=== PATIENT | male | born 1955 | race Caucasian/White ===

== ENCOUNTER 2021-12-22 13:10 | Inpatient (IN) | payer OTHER ==
[~2021-12-22] VITALS: Ht 185.4 cm; Wt 84.7 kg
[2021-12-22] MEDS ORDERED: NALOXONE 0.4 MG/ML VIAL. IV ONE (13:30)
[2021-12-22] MEDS ORDERED: IV NORMAL SALINE 1,000ML 1,000 ML IV ONE ×2 (13:30→14:30)
--- NOTE | 2021-12-22 13:32 | PHYS DOC ---
General Adult EDM: Chief Complaint: ALTERED MENTAL STATUS HPI: HPI: Patient is a 66-year-old male who presents via EMS from the [place] for altered mental status. Patient colostomy takedown on November 24 and from November 24 to November 29 he had 2 CVAs. He was sent to a rehab facility and on December. He did have a fall. Patient does have stitches in his left forehead that need to be removed today. From patient's CVA nursing staff report that he has a left-sided deficit. They also report that he is on 4 L via nasal cannula at all times. They report that around 12:00 they checked on the patient and he was unresponsive and had shallow breathing. They were unsure if this was due to his 50 mg of morphine, 10 mg of oxycodone and 0.5 mg of Ativan that he received but they did not Narcan him because they were afraid to per nursing staff. Patient has a history of CVA, PTSD and anxiety. Showed positive for COVID-19 on November 25. (RICKY MILNER APRN) Review of Systems: Review of Systems: Patient has no complaints. Review of systems limited due to patient's altered mental status (RICKY MILNER APRN) Current Medications: Current Meds: Current Medications Medications (Trade) Dose Ordered Sig/Chika Start Time Stop Time Status Last Admin Dose Admin Naloxone HCl (Narcan) 0.4 mg 1X ONCE 12/22/21 13:30 12/22/21 13:31 UNV (RICKY MILNER APRN) Physical Exam: PE: Constitutional: cachexia appearance. HENT: Normocephalic, sutures noted to left forehead bilateral external ears normal, oropharynx moist, no oral exudates, nose normal. [] Eyes: PERRL, 3 mm bilaterally, EOMI, conjunctiva normal, no discharge. [] Neck: Normal range of motion, no tenderness, supple, no stridor. [] Cardiovascular:Heart rate regular rhythm, no murmur [] Lungs & Thorax: Bilateral breath sounds clear to auscultation [] Abdomen: Bowel sounds normal, soft, no tenderness, surgical scars noted to midline abdomen and right side of abdomen no masses, no pulsatile masses. [] : Springer in place Skin: Warm, dry, no erythema, no rash. [] Back: No tenderness Extremities: No tenderness, no cyanosis, no clubbing, ROM intact, no edema. [] Neurologic: Alert and oriented X person and time, lethargic, will open eyes to verbal but does not follow all commands, garbled speech, left-sided weakness from previous CVA Psychologic: Affect normal (RICKY MILNER APRN) Current Patient Data: Labs: Laboratory Tests Test 12/22/21 13:25 White Blood Count 12.4 x10^3/uL Red Blood Count 3.64 x10^6/uL Hemoglobin 9.8 g/dL Hematocrit 30.8 % Mean Corpuscular Volume 85 fL Mean Corpuscular Hemoglobin 27 pg Mean Corpuscular Hemoglobin Concent 32 g/dL Red Cell Distribution Width 16.1 % Platelet Count 290 x10^3/uL Neutrophils (%) (Auto) 80 % Lymphocytes (%) (Auto) 10 % Monocytes (%) (Auto) 8 % Eosinophils (%) (Auto) 2 % Basophils (%) (Auto) 0 % Neutrophils # (Auto) 9.9 x10^3uL Lymphocytes # (Auto) 1.2 x10^3/uL Monocytes # (Auto) 1.0 x10^3/uL Eosinophils # (Auto) 0.2 x10^3/uL Basophils # (Auto) 0.0 x10^3/uL Sodium Level 133 mmol/L Potassium Level 5.7 mmol/L Chloride Level 97 mmol/L Carbon Dioxide Level 26 mmol/L Anion Gap 10 Blood Urea Nitrogen 48 mg/dL Creatinine 2.8 mg/dL Estimated GFR (Cockcroft-Gault) 22.9 BUN/Creatinine Ratio 17 Glucose Level 96 mg/dL Lactic Acid Level 0.6 mmol/L Calcium Level 9.0 mg/dL Magnesium Level 2.1 mg/dL Total Bilirubin 0.3 mg/dL Aspartate Amino Transf (AST/SGOT) 24 U/L Alanine Aminotransferase (ALT/SGPT) 40 U/L Alkaline Phosphatase 111 U/L Ammonia 14 mcmol/L Troponin I High Sensitivity 14 ng/L Total Protein 7.3 g/dL Albumin 2.9 g/dL Albumin/Globulin Ratio 0.7 Current Medications Medications (Trade) Dose Ordered Sig/Chika Route PRN Reason Start Time Stop Time Status Last Admin Dose Admin Naloxone HCl (Narcan) 0.4 mg 1X ONCE IV 12/22/21 13:30 12/22/21 14:08 DC 12/22/21 14:04 Sodium Chloride 1,000 ml @ 1,000 mls/hr 1X ONCE IV 12/22/21 13:30 12/22/21 14:29 DC 12/22/21 13:58 (RICKY MILNER APRN) EKG: EKG: EKG performed by ER staff at 1327 shows sinus rhythm with a rate of 64, QTc is 423, no STEMI read by Dr. Feliz at 1329. [] (RICKY MILNER APRN) Radiology/Procedures: Radiology/Procedures: []EXAMINATION: CT HEAD AND C-SPINE WO. TECHNIQUE: Noncontrast axial images of the brain and cervical spine with coronal and sagittal reconstructions were obtained. One or more of the following radiation dose reduction techniques was used: automated exposure control, adjustment of mA and/or KV according to patient size, and/or utilization of iterative reconstruction technique. HISTORY: 66 years Male Reason: ams, possible fall,pain. Weakness. FINDINGS: CT HEAD: There is an area of edema involving the posterior lesion in the right parietal lobe with some extension into the right temporal lobe and the posterior aspect of the right the internal capsule. This is associated with the peripheral the subcortical areas of the parenchymal hemorrhage with possible component of the subarachnoid blood. This is likely a sequela of a late acute or subacute the posterior right MCA infarct with hemorrhagic transformation. A traumatic bleed component is possible although no blood is seen outside the area of infarction. Mild localized edema in the posterior right parietal lobe is seen. There is no midline shift. The lateral ventricles are from normal in size. No extra-axial the fluid collection. The visualized portions of the orbits and paranasal sinuses appear unremarkable. CT cervical spine: There is a minimal posterior translation of C5 over C6 seen, otherwise the alignment of the cervical spine is satisfactory. This alignment abnormalities associated with the degenerative posterior osteophytes at this level and is likely degenerative in etiology. There is a also small posterior osteophytes at the uncovertebral joints at C2/C3 and C3/4. The vertebral body heights are preserved. There is a mild disc height loss seen posteriorly at the C5/6 level. There is a bilateral severe foraminal stenosis at C5/6. Prominent sclerotic degenerative changes at the mid cervical spine facet joints more on the left is noted. The coronal projections demonstrate normal alignment at the lateral masses of C1 and C2 and the atlantooccipital joints. No fracture seen. IMPRESSION: CT HEAD: There is a late acute to subacute the infarction predominantly involving the right parietal lobe in the posterior 50 percent of the right MCA territory. There is superimposed areas of cortical hemorrhage with questionable sub arachnoid component. This is favored to be related to hemorrhagic transformation of an infarct rather than posttraumatic bleed. Correlation with MRI would be helpful. CT cervical spine: Degenerative changes most prominent at C5/6 level. No fracture seen. Critical result: Findings discussed by phone with RICKY MILNER APRN at 12/22/2021 2:00 PM. RESULT CODE: (C) Electronically signed by: Jairo Delgado MD (12/22/2021 2:11 PM) [id number] DICTATED AND SIGNED BY: JAIRO DELGADO MD DATE: 12/22/21 1352 CC: RICKY MILNER APRN; PCP,NO ~ REASON: ams PROCEDURE: PORTABLE CHEST 1V EXAMINATION: XR CHEST 1V CLINICAL HISTORY: Altered mental status. EXAM DATE/TIME: 12/22/2021 1:42 PM COMPARISON: None FINDINGS: Lines, Tubes, and Devices: None. Cardiomediastinal Silhouette: Normal heart size. Lungs and Pleura: Findings suggestive of volume loss on the right with elevation of the right hemidiaphragm and confluent opacity in the medial right mid to lower lung zone which may be related to atelectasis. Patchy opacities in the right upper and lower lung zones with possible spiculation surrounding a central lucency in the lower lung zone, cannot exclude a cavitary lesion. Interstitial prominence in the left lung with mild left basilar opacities likely related to subsegmental atelectasis and/or scarring. No definite pleural effusion. Bones and Soft Tissues: Degenerative changes in the thoracic spine. IMPRESSION: Findings suggestive of volume loss in the right hemithorax with nonspecific opacities in the upper and lower lung zones, cannot exclude cavitary nodule with surrounding spiculation in the right lower lung zone. Correlate with clinical history and consider follow-up CT chest for further evaluation as indicated. Electronically signed by: Carmelo Hemphill DO (12/22/2021 2:29 PM) [facility] DICTATED AND SIGNED BY: CARMELO HEMPHILL DO DATE: 12/22/21 1424 CC: RICKY MILNER APRN; PCP,NO ~ (RICKY MILNER APRN) Heart Score: C/O Chest Pain: No Risk Factors: Risk Factors: DM, Current or recent (<one month) smoker, HTN, HLP, family history of CAD, obesity. Risk Scores: Score 0 - 3: 2.5% MACE over next 6 weeks - Discharge Home Score 4 - 6: 20.3% MACE over next 6 weeks - Admit for Clinical Observation Score 7 - 10: 72.7% MACE over next 6 weeks - Early Invasive Strategies (RICKY MILNER APRN) Course & Med Decision Making: Course & Med Decision Making Pertinent Labs and Imaging studies reviewed. (See chart for details) [] Patient presents to the emergency department for altered mental status. Patient is alert and oriented to person and time. He is difficult to understand due to garbled speech and requires frequent verbal stimulation to keep him awake. Diabetes, patient will be given a dose of Narcan as he does take numerous and high doses of sedating medications. Work-up in the ER also consisted of blood work including lactic acid, troponin, blood cultures, ammonia, urinalysis and CT imaging of head, neck and chest x-ray. Patient is requiring 8 L via simple mask as he is mouth breathing. He usually wears 4 L via nasal cannula at the longterm. Patient was noted to have anemia with a hemoglobin of 9.8 and hematocrit of 30.8. Mild leukocytosis with a white blood cell count of 12.4. Currently awaiting urinalysis and chest x-ray results. Patient had a sodium of 133, potassium of 5.7, chloride of 97, BUN of 48 and a creatinine of 2.8. Patient has never been at this facility before we have no records of previous lab results therefore unsure if this is an acute kidney injury versus chronic. Patient CT scan of his head and neck shows a late acute to subacute the infarction predominantly involving the right parietal lobe in the posterior 50 percent of the right MCA territory. There is superimposed areas of cortical hemorrhage with questionable subarachnoid component. This is favored to be related to hemorrhagic transformation of an infarct rather than posttraumatic bleed. HEALTH UNIT COORDINATOR administered 0.4 of Narcan and patient became more responsive. He is currently alert and oriented x4. He is requesting pain medication. I informed patient that due to his oversedation, I believe it is appropriate to order pain medication at this moment. I discussed patient's CODE STATUS with him and he states that he is a DNR. Patient will need to be admitted to the hospital for the hemorrhage and EDIL as w ell as hyperkalemia. I discussed patient's case with Dr. Horn who agreed to admit the patient under his services. He advises to flush patient's urinary catheter and administer 1 amp of calcium gluconate, 1 amp of sodium bicarb and IV fluids. ER bridge orders was this time 1435 1458: Chest x-ray nodule and nodule and urinalysis not show any infection. (RICKY MILNER APRN) Dragon Disclaimer: Dragon Disclaimer: This electronic medical record was generated, in whole or in part, using a voice recognition dictation system. (RICKY MILNER APRN) Attending Co-Sign The patient was seen and interviewed as well as examined at the bedside. The chart was reviewed. The case was discussed. Agree with the plan of care. (CARLO FELIZ DO) Departure Departure: Impression: Primary Impression: EDIL (acute kidney injury) Additional Impressions: Hyperkalemia Acute hemorrhagic infarction of brain Disposition: ADMITTED INPATIENT Admitting Physician: Duane Horn (RICKY MILNER APRN) Condition: STABLE Referrals: PCP,NO (PCP) RICKY MILNER APRN December 22, 2021 13:32 CARLO FELIZ DO December 23, 2021 18:11
--- NOTE | 2021-12-22 13:35 | EKG ---
[address] [address] Test Date: 2021-12-22 Test Time: 13:27:20 Pat Name: DOMINICK SHAFER Department: Room: Gender: M Magazine Filler: ZHAO : 1955 Requested By: RICKY MILNER Order Number: [id number] Reading MD: Nikolai Araujo Measurements Intervals [place] Rate: 64 P: 36 UT: 168 QRS: 30 QRSD: 96 T: 36 QT: 406 QTc: 423 Interpretive Statements SINUS RHYTHM NORMAL ECG RI6.02 No previous ECG available for comparison Electronically Signed On 12-22-2021 17:04:15 CDT by Nikolai Araujo
[2021-12-22 13:48] LABS: BASO % 0 % (0-3); EOS # 0.2 x10^3/uL (0.0-0.7); EOS % 2 % (0-3); HEMATOCRIT 30.8 % (39.0-53.0); HEMOGLOBIN 9.8 g/dL (13.0-17.5); LYMPH # 1.2 x10^3/uL (1.0-4.8); LYMPH % 10 % (24-48); MEAN CORPUSCULAR HEMOGLOBIN 27 pg (25-35); MEAN CORPUSCULAR HGB CONC 32 g/dL (31-37); MEAN CORPUSCULAR VOLUME 85 fL (79-100); MONO % 8 % (0-9); NEUT # 9.9 x10^3uL (1.8-7.7); NEUT % 80 % (31-73); PLATELET COUNT 290 x10^3/uL (140-400); RED BLOOD COUNT 3.64 x10^6/uL (4.30-5.70); RED CELL DISTRIBUTION WIDTH 16.1 % (11.5-14.5); WHITE BLOOD COUNT 12.4 x10^3/uL (4.0-11.0)
[2021-12-22 14:00] LABS: CREATININE 2.8 mg/dL (0.7-1.3); GFR 22.9; POTASSIUM 5.7 mmol/L (3.5-5.1)
[2021-12-22 14:04] LABS: ALBUMIN 2.9 g/dL (3.4-5.0); ALBUMIN/GLOBULIN RATIO 0.7 (1.0-1.7); MAGNESIUM 2.1 mg/dL (1.8-2.4); TOTAL BILIRUBIN 0.3 mg/dL (0.2-1.0); TOTAL PROTEIN 7.3 g/dL (6.4-8.2)
--- NOTE | 2021-12-22 14:13 | RAD ---
EXAMINATION: CT HEAD AND C-SPINE WO. TECHNIQUE: Noncontrast axial images of the brain and cervical spine with coronal and sagittal recon structions were obtained. One or more of the following radiation dose reduction techniques was used: automated exposure control , adjustment of mA and/or KV according to patient size, and/or utilization of iterative reconstructio n technique. HISTORY: 66 years Male Reason: ams, possible fall,pain. Weakness. FINDINGS: CT HEAD: There is an area of edema involving the posterior lesion in the right parietal lobe with some extensi on into the right temporal lobe and the posterior aspect of the right the internal capsule. This is a ssociated with the peripheral the subcortical areas of the parenchymal hemorrhage with possible compo nent of the subarachnoid blood. This is likely a sequela of a late acute or subacute the posterior ri ght MCA infarct with hemorrhagic transformation. A traumatic bleed component is possible although no blood is seen outside the area of infarction. Mild localized edema in the posterior right parietal lo be is seen. There is no midline shift. The lateral ventricles are from normal in size. No extra-axial the fluid collection. The visualized p ortions of the orbits and paranasal sinuses appear unremarkable. CT cervical spine: There is a minimal posterior translation of C5 over C6 seen, otherwise the alignment of the cervical spine is satisfactory. This alignment abnormalities associated with the degenerative posterior osteop hytes at this level and is likely degenerative in etiology. There is a also small posterior osteophyt es at the uncovertebral joints at C2/C3 and C3/4. The vertebral body heights are preserved. There is a mild disc height loss seen posteriorly at the C5/6 level. There is a bilateral severe foraminal stenosis at C5/6. Prominent sclerotic degenerative changes at t he mid cervical spine facet joints more on the left is noted. The coronal projections demonstrate normal alignment at the lateral masses of C1 and C2 and the atlan tooccipital joints. No fracture seen. IMPRESSION: CT HEAD: There is a late acute to subacute the infarction predominantly involving the right parietal lobe in t he posterior 50 percent of the right MCA territory. There is superimposed areas of cortical hemorrhag e with questionable subarachnoid component. This is favored to be related to hemorrhagic transformati on of an infarct rather than posttraumatic bleed. Correlation with MRI would be helpful. CT cervical spine: Degenerative changes most prominent at C5/6 level. No fracture seen. Critical result: Findings discussed by phone with RICKY MILNER APRN at 12/22/2021 2:00 PM. RESULT CODE: (C) Electronically signed by: Patrick Delgado MD (12/22/2021 2:11 PM) [id number]
[2021-12-22 14:30] LABS: BACTERIA,URINE 0 /HPF (0-FEW); CLARITY,URINE CLEAR; COLOR,URINE YELLOW; GLUCOSE,URINE NEG (NEG); NITRITE,URINE NEG (NEG); RBC,URINE 0 /HPF (0-2); SQUAMOUS EPITHELIAL CELL,UR OCC /LPF; UROBILINOGEN,URINE 0.2 mg/dL (0.2 mg/dL)
[2021-12-22] MEDS ORDERED: IV NORMAL SALINE 500ML 500 ML IV ONE (14:30)
[2021-12-22] MEDS ORDERED: CALCIUM GLUCONATE 1,000 MG/10 ML VIAL IV ONE (14:30)
[2021-12-22] MEDS ORDERED: SODIUM BICARB ADULT 8.4% 50 MEQ/50 ML DISP.SYRIN. IV ONE (14:30)
--- NOTE | 2021-12-22 14:31 | RAD ---
EXAMINATION: XR CHEST 1V CLINICAL HISTORY: Altered mental status. EXAM DATE/TIME: 12/22/2021 1:42 PM COMPARISON: None FINDINGS: Lines, Tubes, and Devices: None. Cardiomediastinal Silhouette: Normal heart size. Lungs and Pleura: Findings suggestive of volume loss on the right with elevation of the right hemidia phragm and confluent opacity in the medial right mid to lower lung zone which may be related to atele ctasis. Patchy opacities in the right upper and lower lung zones with possible spiculation surroundin g a central lucency in the lower lung zone, cannot exclude a cavitary lesion. Interstitial prominence in the left lung with mild left basilar opacities likely related to subsegmental atelectasis and/or scarring. No definite pleural effusion. Bones and Soft Tissues: Degenerative changes in the thoracic spine. IMPRESSION: Findings suggestive of volume loss in the right hemithorax with nonspecific opacities in the upper an d lower lung zones, cannot exclude cavitary nodule with surrounding spiculation in the right lower tanesha ng zone. Correlate with clinical history and consider follow-up CT chest for further evaluation as in dicated. Electronically signed by: Carmelo Lang DO (12/22/2021 2:29 PM) JAMAAL
[2021-12-22 14:32] LABS: AMPHETAMINE/METHAMPHETAMINE NEG (NEG); BARBITURATES NEG (NEG); BENZODIAZEPINES NEG (NEG); CANNABINOIDS NEG (NEG); COCAINE NEG (NEG); METHADONE NEG (NEG); OPIATES POS (NEG); PHENCYCLIDINE NEG (NEG)
[2021-12-22 17:12] VITALS: BP 120/73
--- NOTE | 2021-12-22 17:24 | NUR ---
Admission Note Patient admitted to room 107 via EMS from ED. Patient oriented to self only. Bed alarm on. Patient placed on telemetry. VSS.
[2021-12-22] MEDS ORDERED: DICLOFENAC SODIUM 1% TOPICAL GEL 100GM TUBE. TP SCH (17:30)
[2021-12-22] MEDS ORDERED: ALBUTEROL SULFATE 2.5 MG/3 ML NEBU. NEB PRN (17:30)
[2021-12-22] MEDS ORDERED: METO-239 PO (17:49)
[2021-12-22] MEDS ORDERED: ATOR40TA59 PO (17:49)
[2021-12-22] MEDS ORDERED: ESCITALOPRAM OX20 MG PO (17:49)
[2021-12-22] MEDS ORDERED: DICL100G28 TP (17:49)
[2021-12-22] MEDS ORDERED: VENL75TA PO (17:49)
[2021-12-22] MEDS ORDERED: QUET200T2 PO (17:49)
[2021-12-22] MEDS ORDERED: OLOD4MIS2 IH (17:49)
[2021-12-22] MEDS ORDERED: NICO1PAT21 TP (17:49)
[2021-12-22] MEDS ORDERED: FLUT50DI IH (17:49)
[2021-12-22] MEDS ORDERED: MOME13HF IH (17:49)
[2021-12-22] MEDS ORDERED: GABA-586 PO (17:49)
[2021-12-22] MEDS ORDERED: ALBU2.5V14 NEB (17:49)
[2021-12-22] MEDS ORDERED: AMLO2.5T5 PO (17:49)
[2021-12-22] MEDS ORDERED: BUME1TAB3 PO (17:49)
[2021-12-22] MEDS ORDERED: FERR325T14 PO (17:49)
[2021-12-22] MEDS ORDERED: LISI40TA6 PO (17:49)
[2021-12-22] MEDS ORDERED: PANT40TA6 PO (17:49)
--- NOTE | 2021-12-22 18:30 | NUR ---
Consult Dr. Alvarez called to notify of consult for patient.
--- NOTE | 2021-12-22 18:31 | NUR ---
Dr. Horn called to update on patient arrival to unit and status. New orders received and implemented.
--- NOTE | 2021-12-22 19:50 | NUR ---
Dr. Alvarez here to see pt for neuro consult.
[2021-12-22 20:05] VITALS: BP 120/78
[2021-12-22 20:28] LABS: CALCIUM 8.7 mg/dL (8.5-10.1); CREATININE 2.5 mg/dL (0.7-1.3)
[2021-12-22] MEDS ORDERED: ATORVASTATIN CALCIUM 20 MG TABLET PO SCH (21:00)
[2021-12-22] MEDS ORDERED: GABAPENTIN 300 MG CAPSULE. PO SCH (21:00)
[2021-12-22] MEDS ORDERED: QUEtiapine 100 MG TABLET. PO SCH (21:00)
[2021-12-22] MEDS: MORPHINE SULFATE 2 MG/ML DISP.SYRIN. IVP PRN (22:21)
[2021-12-22 23:13] VITALS: BP 123/78
[2021-12-23] MEDS ORDERED: ALBU2.5V8 IH (00:11)
[2021-12-23] MEDS ORDERED: BUSP5TAB PO (00:11)
[2021-12-23] MEDS ORDERED: MORP-62 PO (00:11)
[2021-12-23] MEDS ORDERED: AMOX1TAB11 PO (00:11)
[2021-12-23] MEDS ORDERED: MIRT7.5T8 PO (00:11)
[2021-12-23] MEDS ORDERED: QUET200T4 PO (00:11)
[2021-12-23] MEDS ORDERED: POLY17PO5 PO (00:11)
[2021-12-23] MEDS ORDERED: VENL75CA6 PO (00:11)
[2021-12-23] MEDS ORDERED: FERR324T5 PO (00:11)
[2021-12-23] MEDS ORDERED: LIDO700A21 TP (00:11)
[2021-12-23] MEDS ORDERED: SODI44SP14 NS (00:11)
[2021-12-23] MEDS ORDERED: HYDR-2868 PO (00:11)
[2021-12-23] MEDS ORDERED: MELA3TAB4 PO (00:11)
[2021-12-23] MEDS ORDERED: OXYC5TAB88 PO (00:11)
[2021-12-23] MEDS ORDERED: QUET100T2 PO (00:11)
[2021-12-23] MEDS ORDERED: LORA0.5T21 PO (00:11)
[2021-12-23] MEDS ORDERED: METO25TA2 PO (00:11)
[2021-12-23] MEDS ORDERED: LACT1CAP6 PO (00:11)
[2021-12-23] MEDS ORDERED: NICO4GUM42 BC (00:11)
[2021-12-23] MEDS ORDERED: ACET325T9 PO (00:14)
[2021-12-23] MEDS ORDERED: AMLO-187 PO (00:14)
[2021-12-23] MEDS ORDERED: ATORVASTATIN CA80 MG PO (00:21)
[2021-12-23] MEDS ORDERED: ASPI-889 PO (00:21)
--- NOTE | 2021-12-23 00:32 | NUR ---
Pt's girlfriend/DPOA Carmella called to check on pt, update given. Carmella also gave accurate contact info for herself--chart updated to reflect.
[2021-12-23] MEDS: MORPHINE SULFATE 2 MG/ML DISP.SYRIN. IVP PRN ×4 (00:47→12:22)
--- NOTE | 2021-12-23 01:33 | NUR ---
Pt is highly impulsive, pulling on IV line and deal catheter. Repeatedly calling out for [facility] staff to feed him despite being informed he is NPO pending swallow study. Mits placed to protect lines. Pt frequently checked on as he is using his teeth to pull off the mits and resumes pulling on lines. Pt instructed not to do so, V/U but forgets minutes later.
[2021-12-23 03:00] VITALS: BP 140/79
[2021-12-23 06:05] LABS: BASO # 0.2 x10^3/uL (0.0-0.2); BASO % 1 % (0-3); EOS # 0.3 x10^3/uL (0.0-0.7); EOS % 2 % (0-3); HEMATOCRIT 30.4 % (39.0-53.0); HEMOGLOBIN 9.9 g/dL (13.0-17.5); LYMPH # 1.6 x10^3/uL (1.0-4.8); LYMPH % 14 % (24-48); MEAN CORPUSCULAR HEMOGLOBIN 28 pg (25-35); MEAN CORPUSCULAR HGB CONC 33 g/dL (31-37); MEAN CORPUSCULAR VOLUME 84 fL (79-100); MONO % 9 % (0-9); NEUT # 8.5 x10^3uL (1.8-7.7); NEUT % 74 % (31-73); PLATELET COUNT 332 x10^3/uL (140-400); RED BLOOD COUNT 3.61 x10^6/uL (4.30-5.70); WHITE BLOOD COUNT 11.5 x10^3/uL (4.0-11.0)
[2021-12-23 06:31] LABS: ALBUMIN 2.8 g/dL (3.4-5.0); ALBUMIN/GLOBULIN RATIO 0.5 (1.0-1.7); CALCIUM 9.3 mg/dL (8.5-10.1); CREATININE 2.1 mg/dL (0.7-1.3); GFR 31.9; POTASSIUM 4.6 mmol/L (3.5-5.1); TOTAL BILIRUBIN 0.3 mg/dL (0.2-1.0); TOTAL PROTEIN 8.1 g/dL (6.4-8.2)
[2021-12-23] MEDS ORDERED: PANTOPRAZOLE 40 MG TABLET. PO SCH (07:30)
[2021-12-23] MEDS ORDERED: FERROUS SULFATE 325 MG TABLET. PO SCH (08:00)
[2021-12-23] MEDS ORDERED: VENLAFAXINE 75 MG TABLET. PO SCH (08:00)
[2021-12-23] MEDS ORDERED: BUMETANIDE 1 MG TABLET PO SCH ×2 (09:00→16:00)
[2021-12-23] MEDS ORDERED: NICOTINE 21MG PATCH. TD SCH (09:00)
[2021-12-23] MEDS ORDERED: amLODIPine BESYLATE 2.5 MG TABLET PO SCH (09:00)
[2021-12-23] MEDS ORDERED: FLUTICASONE 50MCG/NASAL SPRAY 16GM BOTTLE. NS SCH (09:00)
[2021-12-23] MEDS ORDERED: METOPROLOL SUCC 24HR ER 25 MG TAB.ER.24H. PO SCH (09:00)
[2021-12-23] MEDS ORDERED: LISINOPRIL 20 MG TABLET PO SCH (09:00)
[2021-12-23] MEDS: OLANZapine 2.5 MG TABLET PO PRN ×2 (10:19→13:04)
[2021-12-23 11:15] VITALS: BP 162/84
[2021-12-23] MEDS: HALOPERIDOL LACT 5 MG/ML VIAL. IM PRN ×3 (11:27→20:36)
--- NOTE | 2021-12-23 11:38 | NUR ---
@ 1115, Physical therapy in room with patient for PT evaluation. Patient assisted to bathroom by physical therapy. Physical therapy remained outside the door of bathroom. Upon exiting bathroom, patient fell. Fall wittnessed by physical therapy. Nurse called to bedside. Patient assisted back to bed via stretcher.Patient aggressive and combative. Dr. Horn called to update on events. New orders received and implemented for CT head, CT ADB/Pelvis, CT spine, and haldol 5 mg IM q4. VSS. No change in mental status. Patient currently in CT at this time, transported via bed. Addendum: 12/23/21 at 1330 by EDITA TERRY RN RN Edit: Occupational therapy not physical therapy was assisting patient during fall event.
--- NOTE | 2021-12-23 12:51 | RAD ---
EXAM: Head CT without contrast; cervical spine CT without contrast; thoracic spine CT without contras t; lumbar spine CT without contrast; chest, abdomen and pelvis CT without contrast. HISTORY: Fall. Pain. TECHNIQUE: Computed tomographic images of the head and spine and chest, abdomen and pelvis were obtai michelle without contrast. *One or more of the following individualized dose reduction techniques were utilized for this examina tion: 1. Automated exposure control. 2. Adjustment of the mA and/or kV according to patient size. 3. Use of iterative reconstruction technique. COMPARISON: 12/23/2021. FINDINGS: Head: There has been no significant change in a region of decreased attenuation within the posterior right middle cerebral artery distribution containing areas of cortical hyperdensity likely due to pet echial hemorrhage. No convincing subdural hematoma is seen. The possibility of a component of subarac hnoid hemorrhage at the vertex is not excluded. This is difficult to assess given effacement of the s ulci in this location. There is effacement of the posterior right lateral ventricle. There is no midl ine shift. There is no hydrocephalus. The orbits are unremarkable. There is mild left and minimal right maxillary sinus mucosal thickening. The mastoid air cells are clear. There is no suspicious calvarial lesion. Cervical spine: There is multiple level degenerative listhesis. There is degenerative endplate remode ling and facet arthropathy at multiple levels. There is disc space narrowing predominantly at C5-C6. There is no suspicious osseous lesion. There is no acute or subacute fracture. There is pseudoarticul ation of an osseous excrescence from the left skull base with the lateral mass of C1, likely a normal variant of no clinical significance. There are disc protrusions at multiple levels. The combination of degenerative changes results in mild left foraminal stenosis at C2-C3, mild right and moderate to severe left foraminal and mild central canal stenosis at C3-C4, and severe bilateral foraminal stenosis at C5-C6. Thoracic spine: There is a minimal chronic anterior superior endplate depression with Schmorl's node at T1. There is an age indeterminate anterior superior endplate fracture at T3, without significant d ecreased vertebral body height. There is multilevel endplate remodeling. There are few endplate Schmo rl's nodes. There is disc space calcification at T8-T9. There are multiple small disc protrusions and disc osteophyte complexes. For reference purposes, there is a right lateral recess disc protrusion a nd osteophyte complex at T8-T9. There is left greater than right facet arthropathy at T9-T10 and T10- T11. There is a chronic appearing nonunited fracture of the posterior left T11 rib. There is partially consolidated right upper and lower lobe and lingular infiltrate superimposed on gr oundglass and nodular infiltrate and chronic interstitial changes. There is mild emphysema. There are prominent mediastinal and hilar lymph nodes. There are calcified granulomas. There is coronary arter y calcification. Lumbar spine: There is mild retrolisthesis of L1 on L2, L2 on L3, L3 on L4 and L4 on L5. There is 2 m m grade 1 anterolisthesis of L5 on S1. There is multilevel endplate remodeling and anterior spurring. There is multilevel facet arthropathy. There is subchondral sclerosis involving the sacroiliac joint s. There are multilevel disc bulges and shallow disc protrusions. The combination of degenerative changes results in mild left foraminal stenosis at L1-L2, mild bilate ral foraminal stenosis at L2-L3, moderate bilateral foraminal stenosis at L3-L4, moderate bilateral f oraminal stenosis at L4-L5, and mild left foraminal stenosis at L5-S1. Chest: There is multifocal partially consolidated infiltrate within the right upper and lower lobes a nd lingula. The superimposed on groundglass and nodular infiltrate, emphysema and chronic interstitia l lung disease. No pneumothorax or pleural effusion is seen. There are prominent mediastinal and nitish r lymph nodes, possibly reactive in etiology. The aorta is normal in caliber. There is no evidence of traumatic aortic injury. There are multiple chronic appearing rib fractures. Abdomen and pelvis: Evaluation of the lower thorax demonstrates a focal partial consolidation superim posed on groundglass and nodular infiltrate. There is emphysema and there are chronic interstitial ch anges. There is cardiomegaly. There is coronary artery calcification. No hepatic lesion is seen. The gallbladder, pancreas, spleen and adrenal glands are unremarkable. The kidneys are unremarkable. Ther e is a surgical anastomosis involving the distal transverse colon. There is a moderate to large amoun t of colonic stool. There is no evidence of bowel dehiscence, free air or abscess. There is a tiny fa t-containing ventral abdominal wall hernia and there is evidence of recent midline ventral abdominal wall surgery. There is also stranding within the right lateral ventral abdominal wall possibly due to a laparoscopic port site. There is aortic and aortic branch vessel atherosclerosis. There is a focus of gas within the bladder likely due to recent catheterization. There is no lymphadenopathy. There a re healed rib fractures. There are findings suggesting chronic hip impingement. IMPRESSION: 1. No significant change in a large region of decreased attenuation within the posterior right middle cerebral artery distribution with superimposed acute cortical petechial hemorrhage, the appearance o f which favors an evolving subacute infarct with hemorrhagic transformation. The possibility of stabl e superimposed subarachnoid hemorrhage is not excluded, difficult to assess given effacement of sulci at the vertex. 2. Nondepressed anterior superior endplate fracture at T3, of uncertain chronicity. Given a history o f recent trauma, this may be acute. Correlate for pain in this location. There is also a chronic appe aring superior endplate compression deformity at T1. 3. 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 There are additional suspected healed rib frac tures. 4. Multilevel degenerative change throughout the cervical, thoracic and lumbar spine, described in de tail above. This results in significant stenosis at the aforementioned levels. 5. Multifocal partially consolidated pneumonia is on emphysema and chronic interstitial changes. Shor t-term follow-up within 3 months is recommended to confirm resolution and exclude underlying neoplasm . 6. Suspected reactive mediastinal and hilar lymphadenopathy. Attention at the time of follow-up is re commended. 7. Moderate colonic stool and evidence of recent laparotomy. There is no evidence of bowel obstructio n or dehiscence at the level of a colonic anastomosis. 8. Tiny fat-containing superior umbilical hernia. Electronically signed by: Carly Pool MD (12/23/2021 12:49 PM) [id number]
--- NOTE | 2021-12-23 13:36 | NUR ---
Bedside swallow nurse kristen Patient ate 100% of breakfast and thin liquids without difficulty. No choking or coughing noted during or after meal. Patient able to swallow pills whole without difficulty. Addendum: 12/23/21 at 1337 by EDITA TERRY RN RN Amended: Links added.
[2021-12-23] MEDS ORDERED: POLYETHYLENE GLYCOL 3350 17 GM PACKET. PO PRN (13:45)
[2021-12-23] MEDS ORDERED: oxyCODONE IR 5 MG TABLET PO PRN ×2 (13:45→15:45)
[2021-12-23] MEDS ORDERED: ACETAMINOPHEN 325 MG TABLET PO PRN (13:45)
[2021-12-23] MEDS ORDERED: LORazepam 0.5 MG TABLET PO PRN (13:45)
[2021-12-23] MEDS ORDERED: SODIUM CHLORIDE 0.65% NASAL SPRAY 45ML BOTTLE. NS PRN (13:45)
[2021-12-23] MEDS ORDERED: hydrALAZINE 25 MG TABLET PO PRN (13:45)
[2021-12-23] MEDS: GABAPENTIN 300 MG CAPSULE. PO SCH ×2 (14:00→20:35)
[2021-12-23] MEDS: busPIRone 5 MG TABLET. PO SCH ×2 (14:00→20:35)
--- NOTE | 2021-12-23 14:44 | NUR ---
Discharge order cancelled due to transportation scheduling.
[2021-12-23 15:22] VITALS: BP 133/78
[2021-12-23] MEDS ORDERED: ALBUTEROL SULFATE 2.5 MG/3 ML NEBU. NEB PRN (15:30)
[2021-12-23] MEDS: ASPIRIN ENTERIC COATED 81 MG TABLET.DR. PO SCH (15:32)
[2021-12-23] MEDS: LIDOCAINE (700MG/PATCH) PATCH. TP SCH ×2 (15:33→15:55)
[2021-12-23] MEDS: NICOTINE 21MG PATCH. TD SCH (15:40)
[2021-12-23] MEDS: CITALOPRAM 20 MG TABLET. PO SCH (15:40)
[2021-12-23] MEDS: amLODIPine BESYLATE 10 MG TABLET PO SCH (15:40)
[2021-12-23] MEDS: LACTOBACILLUS RHAMNOSUS GG 1 CAPSULE. PO SCH (15:41)
[2021-12-23] MEDS: PANTOPRAZOLE 40 MG TABLET. PO SCH (15:41)
[2021-12-23] MEDS: METOPROLOL SUCC 24HR ER 25 MG TAB.ER.24H. PO SCH (15:42)
[2021-12-23] MEDS: QUEtiapine 100 MG TABLET. PO SCH (15:42)
[2021-12-23] MEDS ORDERED: NICOTINE POLACRILEX GUM 2 MG GUM. BC PRN (15:45)
[2021-12-23] MEDS: DICLOFENAC SODIUM 1% TOPICAL GEL 100GM TUBE. TP SCH ×2 (15:51→20:35)
[2021-12-23] MEDS: FERROUS SULFATE 325 MG TABLET. PO SCH (15:54)
[2021-12-23] MEDS: ALBUTEROL SULFATE 2.5 MG/3 ML NEBU. NEB SCH ×2 (16:00→20:00)
[2021-12-23] MEDS: VENLAFAXINE 75 MG TABLET. PO SCH ×2 (16:11→20:35)
[2021-12-23] MEDS: IV NORMAL SALINE 1,000ML 1,000 ML IV SCH (16:11)
--- NOTE | 2021-12-23 17:14 | HP ---
DATE OF SERVICE: 12/23/2021 ADMIT DATE: 12/22/2021 HISTORY OF PRESENT ILLNESS: The patient is a 66-year-old male patient who presented to the Emergency Room of [facility] via EMS from the [facility] for altered mental status. The patient had a colostomy takedown on 11/24/2021 and then from 11/24/2021 to 11/29/2021 had had 2 CVAs. He was sent to a rehab facility and in December, he did have a fall. The patient does have stitches on his left forehead that need to be removed from the patient. CVA staff reports that he has left-sided deficit. They also reported that he has 4 liters oxygen by nasal cannula at all times. They report around 12 noon, they checked on the patient and he was unresponsive and had shallow breathing. They were unsure if this was due to his 50 mg of morphine, 10 mg of oxycodone and 0.5 mg Ativan that he is receiving, but they did not Narcan him because they were afraid to. Per nursing staff, the patient has a history of CVA, post-traumatic stress disorder and anxiety. He apparently was positive for COVID-19 on 11/30/2021. He was extensively investigated in the Emergency Room, has had lab work and imaging studies. His lab work showed that he has mild leukocytosis, and normochromic-normocytic anemia. His chemistry showed that he has acute on chronic or chronic kidney injury. He has also hyponatremia and hyperkalemia. Urinalysis was unremarkable and toxic screen was positive for opioids. He has had his chest x-ray, showed the patient cardiomediastinal silhouette is normal. The findings are suggestive of volume loss in the right side with elevation of the right hemidiaphragm and confluent opacity in the right middle to lower lung zones, which may be related to atelectasis, patchy opacities in the right upper and lower zones with possible spiculation surrounding a central lucency in the lower lung zone, cannot exclude a cavitary lesion. Interstitial prominence in the left lung with mild left basilar opacities, likely related to subsegmental atelectasis and/or scarring. No definite pleural effusion. The bones showed degenerative changes in the thoracic spine. The impression is the patient has findings suggestive of volume loss in the right hemithorax with nonspecific opacities in the upper and lower lung zone. Cannot exclude cavitary nodules with surrounding spiculation in the right lower lung zones. Correlate with clinical history and consider following a CT chest for further evaluation as indicated. He did have a CT scan of the head and cervical spine, which showed there is a late acute to subacute infarction, predominantly involving the right parietal lobe. In the posterior 50% of the right middle cerebral artery territory, there is superimposed area of the cortical hemorrhage with questionable subarachnoid component. This is favored to be related to hemorrhagic transformation of an infarct rather than posttraumatic bleed. Correlation with MRI would be helpful. CT of the cervical spine showed degenerative changes, most prominent at C5-C6 level. No fractures seen. The patient was admitted and he was treated with IV fluid in the form of normal saline and we held his lisinopril and Bumex. We will consult physical and occupational therapy and we will decide on further management accordingly. PAST MEDICAL HISTORY: Significant for right middle cerebral artery territory infarct with left-sided hemiplegia, chronic obstructive pulmonary disease, bipolar mood disorders, has an episode of acute delirium, fall with left brow bruising and laceration, acute on chronic renal insufficiency, iron deficiency anemia, COVID-19 infection from which he has recovered, hypertension, hyperlipidemia, chronic diastolic heart failure, generalized anxiety disorder, allergic rhinitis, neuropathy, anorexia, insomnia, chronic low back pain, tobacco use disorder, gastroesophageal reflux disease. PAST SURGICAL HISTORY: Significant for hernia repair and apparent during which there was bowel perforation that required a colostomy and apparently he underwent takedown of this. On 11/24/2021, he apparently suffered 2 CVAs, 11/24/2021 and 11/29/2021 while he was at [facility]. ALLERGIES: He has no known drug allergies. MEDICATIONS: He is currently on the following medications: He is on albuterol sulfate 2 puffs every 6 hours, Striverdi Respimat 2 puffs daily and Nicoderm patch 21 mg topically daily, ferrous sulfate 324 mg twice a day, hydralazine 25 mg every 6 hours as needed, metoprolol succinate 12.5 mg daily, amlodipine besylate 10 mg daily, aspirin 81 mg once a day, diclofenac sodium 1 gram topically 4 times a day, morphine sulfate 30 mg twice a day. Oxycodone 5 mg, he is on 10 mg every 4 hours; acetaminophen 650 mg every 6 hours; gabapentin 300 mg 3 times a day; escitalopram oxalate 20 mg, he takes 10 mg once a day; mirtazapine 7.5 mg at bedtime; venlafaxine 225 mg daily; quetiapine fumarate 100 mg daily, quetiapine fumarate 250 mg at bedtime; lorazepam 0.5 mg every 4 hours as needed; fluticasone propionate for Flovent 50 mcg 2 sprays once a day; mometasone; formoterol or Dulera 1 puff twice a day. He is on sodium chloride nasal spray 2 sprays to each nostril every 4 hours, Lactobacillus acidophilus for probiotic 1 capsule twice a day, polyethylene glycol 17 grams daily p.r.n. for constipation. Protonix 40 mg daily, Lidoderm patch apply 2 topically daily for local pain, and atorvastatin, calcium 80 mg at bedtime, melatonin 3 mg p.o. at bedtime. FAMILY HISTORY: Father had history of alcohol abuse. Mother with anxiety and depression. SOCIAL HISTORY: He apparently was in the [employer] with entry date on 10/29/1973, service separation was 04/09/1975. He has been a former heavy drinker, smoked since age 16. He does not use any illicit drugs. He lives in rented apartment with his significant other. REVIEW OF SYSTEMS: As per history of present illness. PHYSICAL EXAMINATION: GENERAL: On arrival to the Emergency Room, the patient apparently was alert, oriented person, at times lethargic, will open his eyes to verbal stimuli, but does not follow all commands with a garbled speech, left-sided weakness from previous CVA. VITAL SIGNS: His heart rate was 66, blood pressure 115/61, temperature was 96, respiratory rate was 16 and oxygen saturation was 96% on 9 liters of oxygen. HEAD, EYES, EARS, NOSE, AND THROAT: Normocephalic, atraumatic. NECK: Supple. HEART: Showed normal first and second heart sounds. No gallop or murmur. CHEST: Shows central trachea, equal bilateral chest expansion, air entry, vesicular breath sounds. No crepitation or rhonchi. ABDOMEN: Distended, soft, nontender. NEUROLOGIC: He has left sided hemiplegia, worse in his left upper extremity than lower extremity; however, the patient is able to ambulate. He has had an indwelling Springer catheter placed and was started on IV fluid and was given morphine, and was admitted. PLAN: To continue with IV fluid and to consult Physical and Occupational Therapy as well as Dr. Alvarez, the neurologist. MISTY/AWILDA/NIKOS DR: Canelo TID: [id number]
--- NOTE | 2021-12-23 18:00 | NUR ---
Patient definitely needed the 1:1 assignment due to his impulsive and erratic behavior. Patient has needed X1 assistance with multiple transfers to the [facility] for bowel movements and urination. When patient has the need for a BM or urination he immediately gets up without calling or waiting for help triggering the bed alarm at all times. Patient has had episodes of wakefulness/alertness along with periods of sleeping. Patient is currently sleeping in the bed with side rails up x's 2, call light in reach, and bed alarm activated. STEF.
--- NOTE | 2021-12-23 18:54 | CONS ---
NEURO CONSULT REFERRING PHYSICIAN: Duane Horn MD REASON FOR CONSULTATION: Left-sided weakness, status post stroke and falls. HISTORY OF PRESENT ILLNESS: This is a 66-year-old right-handed male who was admitted through Emergency Room today after he presented with chief complaints of mental status changes. According to the patient, he has colostomy taken down on 11/24/2021. Few days later, he had 2 strokes resulted in left-sided weakness and slurred speech. According to the patient, he tripped yesterday and fell and had a laceration over the left frontal regions, required multiple stitches. He complains of intermittent headaches. In Emergency Room, the patient was somewhat agitated. He was given a morphine of 50 mg and oxycodone then he was given Ativan to sedate him. Subsequently, he became unresponsive. He was admitted for further evaluation of his acute mental status changes. Initial nonenhanced head CT scan revealed acute and subacute right MCA and partial of [employer] large infarcts along with cortical hemorrhage and a questionable subarachnoid hemorrhage as well. Currently, the patient complains of frontal headaches, likely secondary to falls and head injuries. He denies chest pain, shortness of breath or palpitation, dysarthria or dysphagia. In the Emergency Room, the patient had a bedside swallowing test, which he was able to tolerate water, but he is not able to eat today. He denies diplopia or paresthesia. A CT of the cervical spine revealed evidence of degenerative disk disease, more prominent at C5-C6. PAST MEDICAL HISTORY: Significant for COVID-19 positive on 11/25/2021. GERD, gastroesophageal disorder or disease; bipolar disorders; anxiety; smoking. Chronic low back pain, radiates sometimes into the lower extremities and associated with numbness and paresthesia. PAST SURGICAL HISTORY: Positive for removal of a colostomy and cardiac disease, hyperlipidemia. FAMILY HISTORY: Noncontributory. SOCIAL HISTORY: The patient is a smoker. He denies alcohol drinking or illicit drug use. CURRENT MEDICATIONS: Albuterol inhaler, amlodipine, Lipitor, diclofenac, Lexapro, ferrous sulfate, gabapentin, lisinopril, metoprolol, nicotine patches, pantoprazole, Seroquel, venlafaxine. ALLERGIES: No known drug allergies. REVIEW OF SYSTEMS: A 10-point review of system was performed as mentioned above in history of present illness. PHYSICAL EXAMINATION: GENERAL: Well-developed, well-nourished male in no acute distress. VITAL SIGNS: Blood pressure 120/73, respiratory rate 16, pulse is 66 and regular, temperature 98.2, oxygen saturation is 92% on 4 liters via nasal cannula. HEENT: Normocephalic, atraumatic, otherwise unremarkable. NECK: Supple, negative for carotid bruit, lymphadenopathy or thyromegaly. LUNGS: Clear to A and P. CARDIOVASCULAR: Regular rate and rhythm, normal S1, S2. There is no S3, S4 or murmur. ABDOMEN: Soft. Bowel sounds positive. EXTREMITIES: Negative for cyanosis, clubbing or pedal edema. NEUROLOGIC: Mental status: The patient is alert and oriented to himself and situation. Speech is fluent. There is no language dysfunction. Memory, judgment and abstracting thinking are fair. The patient denies hallucination or delusion. Cranial nerves: Visual gutierrez, the patient probably has left homonymous hemianopsia. The pupils are equal and reactive to light and accommodation. The extraocular movements are intact. There is no nystagmus. There is no facial motor or sensory deficit. Hearing is intact bilaterally. The palate is elevated symmetrically. Sternocleidomastoid muscles are powerful bilaterally. The patient shrugs his shoulders symmetrically, protrudes his tongue in the midline without fasciculation or atrophy. Motor exam: No focal muscle bulk wasting. The tone is normal. The strength is 4/5 in the left upper and lower extremity compared to those on the right side. The tone is normal. Sensory examination revealed diminished pinprick and light touch senses over the left upper and lower extremities compared to those on the left side. Deep tendon reflexes were symmetric and hypoactive with absent Achilles responses. Gait not tested. LABORATORY DATA: CBC revealed blood cells of 12.4 thousand, hemoglobin 9.8, hematocrit 30.8, platelet count 290,000. Chemistry revealed sodium of 133, potassium 4.7, chloride 97, CO2 of 26, BUN 48, creatinine 2.8, glucose is 99, calcium is 9. Magnesium is normal at 2.1. Liver enzymes are normal. Troponin I high sensitivity is 14. Urinalysis is negative for urinary tract infections. Urine drug screen is negative as well. IMPRESSION: 1. Moderate left hemiparesis, likely due to recent strokes in the distribution of the right resulted in a moderate left hemiparesis with possible homonymous hemianopsia. 2. Status post fall resulted in left frontal laceration. 3. Multiple medical problems include hypertension, cardiac disease, hyperlipidemia, smoking, chronic versus acute renal failure, gastroesophageal reflux disease, anemia. 4. Degenerative disk disease at C5, C6 with spinal stenosis. 5. Abnormal head CT scan consistent with large infarct in the right middle cerebral artery and a partial of the posterior cerebral artery and possible cortical hemorrhage and suspected subarachnoid component, mild hyponatremia and hyperkalemia. RECOMMENDATIONS: 1. Follow up with serial head CT scan to rule out persistent cortical versus subarachnoid hemorrhage. MRI is recommended as well. 2. Correct the underlying metabolic derangement. 3. Speech therapy evaluation for dysphagia. PRASANTH/AWILDA/KRISTEN DR: Naina TID: [id number]
[2021-12-23] MEDS: BUDESONIDE 0.5 MG/2 ML NEBU NEB SCH (20:00)
[2021-12-23 20:36] LABS: CHOLESTEROL/HDL RATIO 2.5
[2021-12-23 20:59] VITALS: BP 116/70
[2021-12-23] MEDS ORDERED: MELATONIN 3 MG TABLET PO SCH (21:00)
[2021-12-23] MEDS ORDERED: MORPHINE ER 30 MG TABLET.ER PO SCH (21:00)
[2021-12-23] MEDS ORDERED: QUEtiapine 100 MG TABLET. PO SCH (21:00)
[2021-12-23] MEDS ORDERED: ATORVASTATIN CALCIUM 20 MG TABLET PO SCH (21:00)
[2021-12-23] MEDS ORDERED: MIRTAZAPINE 7.5 MG TABLET. PO SCH (21:00)
[2021-12-23] MEDS ORDERED: NON FORMULARY ITEM (Mometasone/Formoterol (Dulera 200 Mcg/5 Mcg Inhaler) 1 PUFF) IH SCH (21:00)
[2021-12-24] MEDS: IV NORMAL SALINE 1,000ML 1,000 ML IV SCH (01:29)
--- NOTE | 2021-12-24 01:50 | PN ---
DATE: 12/23/2021 SUBJECTIVE: The patient continues to have complaints of frontal headaches, probably secondary to recent head injuries and a laceration of the forehead. He also complains of visual disturbances and intermittent localized substernal chest pain. OBJECTIVE: GENERAL: A well-developed, well-nourished male in no acute distress. VITAL SIGNS: Blood pressure 140/79, respiratory rate 20, pulse is of 58 and regular, oxygen saturation 92% on 4 liters per nasal cannula and temperature 98.1. HEENT: Normocephalic, atraumatic, otherwise unremarkable. NECK: Supple, negative for carotid bruit, lymphadenopathy or thyromegaly. LUNGS: Clear to A and P. CARDIOVASCULAR: Regular rate and rhythm, normal S1, S2. ABDOMEN: Soft. Bowel sounds positive. EXTREMITIES: Negative for cyanosis, clubbing or pedal edema. NEUROLOGIC: Mental status: The patient is more alert and oriented to x 2. The speech is more fluent. There is no language dysfunction. Memory, judgment and abstracting thinking are fair. The patient denies hallucination or delusion. Cranial nerves are intact except for possible left homonymous hemianopsia. Motor examination revealed no focal muscle bulk wasting. The tone is normal. The strength is 4/5 in the left upper and lower extremities; however, the patient has atrophy of the left hand small muscles and weakness of all left hand abductors. The sensory examination revealed diminished pinprick and light touch senses in the left upper and lower extremity dermatomes. Deep tendon reflexes were symmetric and hypoactive with absent Achilles responses. Gait not tested at this time. LABORATORY DATA: CBC revealed blood cells of 11.5 thousand, hemoglobin 9.9, hematocrit 30.4, platelet count 332,000. Chemistry revealed a sodium of 138, potassium 4.6, chloride 99, CO2 28, BUN 37, creatinine 2.1, glucose 97, calcium is 9.3. IMPRESSION: 1. Status post recent acute and subacute stroke resulted in left hemiparesis, left hemisensory deficit and left homonymous hemianopsia. 2. Marked atrophy of the left hand small muscles with atrophy of left FDI, rule out a stroke versus rule out residual ___ entrapment neuropathy of the left ulnar nerve at the elbow. 3. Abnormal head CT scan consistent with large right MCA and possible partial post-CA territory infarct and possible cortical hemorrhage. 4. Multiple medical problems include dysphagia, frontal headaches secondary to fall and head injury, hypertension, chronic lower back pain, hyperlipidemia, depressions, anxiety and chronic lower back pain. 5. Chronic acute renal failure. RECOMMENDATIONS: 1. Continue with current management initiated by Dr. Horn and Dr. Baker. 2. Continue with Neurology recommendations including dysphagia evaluation, physical therapy and continue with current medication. However, the patient needs a followup with head CT scan to rule out a bleed. 3. Treat the underlying chronic and acute renal failure. KEYLA DR: Naina TID: [id number]
[2021-12-24 05:00] VITALS: BP 93/58
[2021-12-24] MEDS: BUDESONIDE 0.5 MG/2 ML NEBU NEB SCH (05:30)
[2021-12-24 06:01] LABS: HEMATOCRIT 26.5 % (39.0-53.0); HEMOGLOBIN 8.7 g/dL (13.0-17.5); RED BLOOD COUNT 3.14 x10^6/uL (4.30-5.70); RED CELL DISTRIBUTION WIDTH 15.7 % (11.5-14.5); WHITE BLOOD COUNT 10.4 x10^3/uL (4.0-11.0)
[2021-12-24 06:10] LABS: CALCIUM 8.6 mg/dL (8.5-10.1); GFR 33.7; POTASSIUM 4.4 mmol/L (3.5-5.1)
[2021-12-24 07:21] VITALS: BP 116/68
[2021-12-24] MEDS: ALBUTEROL SULFATE 2.5 MG/3 ML NEBU. NEB SCH (07:44)
[2021-12-24] MEDS: ASPIRIN ENTERIC COATED 81 MG TABLET.DR. PO SCH (08:00)
[2021-12-24] MEDS: FERROUS SULFATE 325 MG TABLET. PO SCH (08:00)
[2021-12-24] MEDS: LACTOBACILLUS RHAMNOSUS GG 1 CAPSULE. PO SCH (08:00)
[2021-12-24 09:00] VITALS: BP 93/58
[2021-12-24] MEDS: METOPROLOL SUCC 24HR ER 25 MG TAB.ER.24H. PO SCH (09:00)
[2021-12-24] MEDS: NICOTINE 21MG PATCH. TD SCH (09:00)
[2021-12-24] MEDS: GABAPENTIN 300 MG CAPSULE. PO SCH (09:00)
[2021-12-24] MEDS: amLODIPine BESYLATE 10 MG TABLET PO SCH (09:00)
[2021-12-24] MEDS: PANTOPRAZOLE 40 MG TABLET. PO SCH (09:00)
[2021-12-24] MEDS: DICLOFENAC SODIUM 1% TOPICAL GEL 100GM TUBE. TP SCH (09:00)
[2021-12-24] MEDS ORDERED: NON FORMULARY ITEM (Olodaterol HCl (Striverdi Respimat) 2 PUFF) IH SCH (09:00)
[2021-12-24] MEDS: VENLAFAXINE 75 MG TABLET. PO SCH (09:00)
[2021-12-24] MEDS: CITALOPRAM 20 MG TABLET. PO SCH (09:00)
[2021-12-24] MEDS: busPIRone 5 MG TABLET. PO SCH (09:00)
[2021-12-24] MEDS ORDERED: FLUTICASONE PROPIONATE IH SCH (09:00)
[2021-12-24] MEDS: QUEtiapine 100 MG TABLET. PO SCH (09:00)
[2021-12-24] MEDS ORDERED: LISINOPRIL 20 MG TABLET PO SCH (09:00)
--- NOTE | 2021-12-24 10:17 | NUR ---
[facility] AT APPROX 0900. REPORT GIVEN TO [facility] FROM [place]. [phone] EXT [id number]
--- NOTE | 2021-12-24 14:38 | PN ---
SUBJECTIVE: The patient apparently was admitted yesterday with altered mental status and was found to have acute on chronic kidney injury. He was started on IV line and has a Springer catheter in. He was apparently extremely impulsive and has been pulling on his IV line and Springer catheter, repeatedly calling out of a [employer] staff to feed him despite being informed he is n.p.o., pending swallow evaluation. Mitts were placed to protect lines. Subsequently, the patient frequently checked on as he is using his teeth to pull off the mitts and resume pulling on lines. The patient had a bedside swallow evaluation. The patient was able to eat 100% of breakfast and thin liquids without difficulty. No choking or coughing noted during or after meal. The patient able to swallow pills whole without difficulty. Unfortunately, the patient has been extremely restless, agitated and had had a fall when he went to the bathroom and he was extensively investigated and has had CT scan of the head and cervical spine, abdomen and pelvis, chest, thoracic and lumbar spine, which basically showed the patient has no significant change and a large region of decreased attenuation within the posterior right middle cerebral artery distribution with superimposed acute cortical petechial hemorrhage, appearance of which favors an evolving subacute infarct with hemorrhagic transformation and the possibility of stable superimposed subarachnoid hemorrhage not excluded, difficult to assess given effacement of sulci at the vertex. He had a nondepressed anterior superior endplate fracture of T3 of uncertain chronicity given a history of recent trauma. This may be acute, correlate for pain and dislocation. There is also a chronic-appearing posterior endplate compression deformity at T1. 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 There are additional suspected healed rib fractures. The patient has multilevel degenerative changes throughout the cervical, thoracic and lumbar spine described in detail. This has resulted in significant stenosis of the aforementioned levels. He has also multifocal partially consolidated pneumonia, emphysema and chronic interstitial changes. Short-term followup within 3 months is recommended to confirm ____, exclude underlying neoplasm. He has suspected reactive mediastinal hilar lymph nodes. Attention at the time of followup is recommended. He has moderate colonic stool with evidence of recent laparotomy. There is no evidence of bowel obstruction or dehiscence at the level of the colonic anastomosis. Has a tiny fat containing superimposed umbilical hernia. The patient was continued on IV fluid. OBJECTIVE: GENERAL: When I saw him this afternoon, he was resting slightly propped up in bed, in no apparent respiratory distress. He was sleepy, but easily arousable. On questioning him, he continued to complain of pain in the back of his head and his back. He does have marked tenderness in the suprapubic and right and left lower quadrants. When I examined him, he was pale, not jaundiced, cyanosed or thyromegaly. No jugular venous distention. No limb edema. VITAL SIGNS: His heart rate was 76, blood pressure was 133/78, temperature 98.6, respiratory rate was 16 and oxygen saturation was 92%. HEAD, EYES, EARS, NOSE, AND THROAT: Normocephalic, atraumatic. NECK: Supple. HEART: Showed normal first and second heart sounds. No gallop, rub or murmur. CHEST: Clear to auscultation. No crepitation or rhonchi. ABDOMEN: Distended, soft, nontender. NEUROLOGIC: He was awake, alert, responding appropriately. All cranial nerves intact. He has left-sided hemiplegia with weakness, more prominent in his left upper extremity than the left lower extremity. He apparently pulled his Springer catheter. LABORATORY DATA: Also, his lab work this morning showed a white cell count of 11.5, hemoglobin 10, hematocrit 30, MCV 84 and platelet count of 332,000. His chemistry showed a serum sodium 138, potassium 4.6, chloride 99, bicarbonate 28, anion gap of 11, BUN 37, creatinine 2.1. Estimated GFR was 32 mL per minute. His glucose was 97, calcium was 9.3. Total bilirubin, AST, ALT, alkaline phosphatase were normal. Total protein 8.1, albumin was 2.8. ASSESSMENT: In summary, this is a 66-year-old male patient who was admitted with altered mental status, likely due to excessive narcotic and sedative medication, as he was getting 30 mg of more MS Contin, 10 mg of oxycodone as well as Ativan. He was found also to have acute on chronic kidney injury. He has apparently right middle cerebral artery territory infarct with superimposed hemorrhagic transformation and possible subarachnoid hemorrhage. Other medical problems include recurrent fall with left brow bruising and laceration, bipolar disorder, iron deficiency anemia, chronic obstructive pulmonary disease. He has COVID-19 infection, hypertension, hyperlipidemia, chronic diastolic congestive heart failure, neuropathy, chronic low back pain, tobacco use disorder and gastroesophageal reflux disease. PLAN: My plan is to continue with IV fluid if it is possible as his creatinine was only 0.9 mg on his admission on 12/20/2021. Continue with physical and occupational therapy. The patient's level of consciousness has dramatically improved and I think we need to cut down his narcotics. MISTY/JANES/BRYAN DR: Canelo TID: [id number]
--- NOTE | 2021-12-27 10:09 | PN ---
DATE: 12/24/2021 SUBJECTIVE: The patient was admitted as a transfer from the [facility] with altered mental status. He was diagnosed with altered mental status likely due to excessive sedation as he was on MS Contin 30 mg twice a day and morphine as well as pregabalin. He was also found to have acute kidney injury as his creatinine baseline was 0.9 on his last lab work available from the [facility]. On arrival, his potassium was high at 5.7 and his creatinine was up to 2.8. I discontinued his lisinopril as well as cut down on his extended release morphine as well as oxycodone and start him on IV fluid and he did well. In fact, his serum potassium has normalized from 5.7-4.4. His creatinine has normalized completely, but down to 2. The patient was discharged back to [facility] to continue the process of rehabilitation there. On the day of discharge, the patient looked well and was clearly in no apparent respiratory distress. No pallor, jaundice, cyanosis, or thyromegaly. No jugular venous distention. No limb edema. PHYSICAL EXAMINATION: VITAL SIGNS: His heart rate was 61, blood pressure was 93/58, temperature was 96.9, respiratory rate was 16 and oxygen saturation was 96% on 4 liters of oxygen. HEAD, EYES, EARS, NOSE, AND THROAT: Normocephalic, atraumatic. NECK: Supple. HEART: Showed normal first and second heart sounds. No gallop or murmur. CHEST: Clear to auscultation. No crepitation or rhonchi. ABDOMEN: Distended, soft, nontender. NEUROLOGIC: He was awake, alert, responding appropriately. All his cranial nerves intact. He has left sided hemiplegia with the weakness, more in the left upper extremity than his lower extremity. His intake was 1800, output was 1750. LABORATORY DATA: As of this morning, his white cell count was 10.4, hemoglobin 8.7, hematocrit 26.5, MCV 84 and platelet count 279,000. His chemistry showed a serum sodium 135, potassium 4.4, chloride 101, bicarbonate 27, anion gap of 7, BUN 28, creatinine 2, estimated GFR was 33 mL per minute. His glucose was 99, calcium was 8.6. Serum triglyceride was 79. Total cholesterol 94, LDL cholesterol was 40, VLDL was 16, HDL cholesterol was 38 and the ratio was 2.5. PLAN: He was discharged back to [facility] to continue on quetiapine fumarate (Seroquel) 250 mg at bedtime, atorvastatin 80 mg at bedtime, morphine sulfate and cut it down to 15 mg twice a day, mirtazapine 7.5 mg at bedtime, melatonin 3 mg at bedtime, budesonide 0.5 mg twice a day, Lactobacillus rhamnosus twice a day, ferrous sulfate 325 mg twice a day, albuterol sulfate 2.5 mg 4 times a day, venlafaxine 75 mg 3 times a day, citalopram hydrobromide 20 mg daily, quetiapine fumarate 100 mg daily, Protonix 40 mg once a day, Nicoderm patch 21 mg transdermal once a day, metoprolol succinate 12.5 mg daily, Lidoderm patch 2 patches to lower back daily on for 12 hours and off for 12 hours, bumetanide together with lisinopril held, aspirin 81 mg, amlodipine 10 mg and oxycodone 5 mg every 6 hours, albuterol sulfate 2.5 mg every 6 hours, gabapentin 300 mg 3 times a day, buspirone 5 mg 3 times a day, polyethylene glycol 17 grams daily, hydralazine 25 mg every 6 hours and acetaminophen 650 mg every 6 hours. FINAL DISCHARGE DIAGNOSES: 1. Altered mental status, resolved. The patient is awake, alert. I actually cut down his morphine and oxycodone. 2. Acute kidney injury, improving. His creatinine came down from 2.8-2. I discontinued his lisinopril and bumetanide and received at least 2 or 3 liters of normal saline. 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 JERZY/SHAWNEE DR: Canelo TID: [id number]
== END 2021-12-24 09:00 | DRG 64 ==
LOC: ER 13:10 → ER HOLD 14:56 → 1 SOUTH 16:36
PROVIDERS: ADMIT Internal Medicine; ATTEND Internal Medicine
DX: I63.511 Cerebral infarction due to unspecified occlusion or stenosis of right middle cerebral artery (principal); I61.1 Nontraumatic intracerebral hemorrhage in hemisphere, cortical; J18.9 Pneumonia, unspecified organism; S22.039A Unspecified fracture of third thoracic vertebra, initial encounter for closed fracture; S22.32XA Fracture of one rib, left side, initial encounter for closed fracture; E87.1 Hypo-osmolality and hyponatremia; G81.94 Hemiplegia, unspecified affecting left nondominant side; I13.0 Hypertensive heart and chronic kidney disease with heart failure and stage 1 through stage 4 chronic kidney disease, or unspecified chronic kidney disease; I50.32 Chronic diastolic (congestive) heart failure; N17.9 Acute kidney failure, unspecified; D50.9 Iron deficiency anemia, unspecified; E78.5 Hyperlipidemia, unspecified; E87.5 Hyperkalemia; F17.200 Nicotine dependence, unspecified, uncomplicated; F31.9 Bipolar disorder, unspecified; F41.1 Generalized anxiety disorder; F43.10 Post-traumatic stress disorder, unspecified; G62.9 Polyneuropathy, unspecified; G89.29 Other chronic pain; J43.9 Emphysema, unspecified; K21.9 Gastro-esophageal reflux disease without esophagitis; M47.812 Spondylosis without myelopathy or radiculopathy, cervical region; M47.814 Spondylosis without myelopathy or radiculopathy, thoracic region; M48.02 Spinal stenosis, cervical region; M50.30 Other cervical disc degeneration, unspecified cervical region; N18.9 Chronic kidney disease, unspecified; R13.10 Dysphagia, unspecified; R29.6 Repeated falls; S00.83XA Contusion of other part of head, initial encounter; W01.0XXA Fall on same level from slipping, tripping and stumbling without subsequent striking against object, initial encounter; Z86.16 Personal history of COVID-19; Z86.73 Personal history of transient ischemic attack (TIA), and cerebral infarction without residual deficits; Z93.3 Colostomy status
CPT/HCPCS: 36415; 70450; 71045; 71250; 72125; 72128; 72131; 74150; 74176; 80048; 80053; 80061; 80307; 81001; 82140; 83605; 83735; 84484; 85025; 85027; 87040; 93005; 96361; 96374; J0610; J1630; J2270; J2310; J7040; 97530; 99285-25; J7030